=== PATIENT | male | born 1955 | race Caucasian/White ===

== ENCOUNTER 2018-10-27 15:37 | Emergency (ER) | payer SELFPAY ==
[~2018-10-27] VITALS: Ht 175.3 cm; Wt 81.6 kg
--- NOTE | 2018-10-27 16:10 | NUR ---
PT PRESENTED TO THE ER WITH A C/O GENERALIZED RASH/HIVES S/P CLEARING BRUSH SEVERAL DAYS AGO. PT IS USING CALAMINE LOTION WITHOUT RELIEF. PT DROVE HERE AND WILL GET RX FOR MEDICATION TO DEAL WITH THE HIVES. PT HAS AN AREA UNDER THE LT ARM THAT APPEARS INFECTED.
[2018-10-27 16:28] VITALS: BP 122/83
--- NOTE | 2018-10-27 16:29 | NUR ---
Patient discharged to home in stable condition. Written and verbal after care instructions given. Patient verbalizes understanding of instruction AND RX. PT AMBULATED OUT WITH A STEADY GAIT. VSS. NAD NOTED.
== END 2018-10-27 16:29 | disposition home or self-care (01) ==
LOC: ER 15:42
DX: L23.7 Allergic contact dermatitis due to plants, except food (principal); L01.00 Impetigo, unspecified